=== PATIENT | male | born 1950 | race Caucasian/White ===

== ENCOUNTER 2017-05-16 06:19 | Day surgery (SDC) | payer MEDICARE, OTHER, SELFPAY ==
[2017-05-16 06:45] VITALS: BP 121/66; PULSE 51; RESP 16; TEMP 36.1; O2SAT 98; BMI 30.8
--- NOTE | 2017-05-16 08:51 | PCM.DC.URO ---
Discharge Diet: Light diet - advance as tolerated Discharge Activity: May not drive while taking narcotic pain medications. Call your doctor if your incision/area has: Continuous Slow Oozing, Sudden Increased Bleeding, Increased Pain/ Swelling, Increased Redness, Foul Smelling Discharge, Swelling at the incision site Instructions: Shock Wave Lithotripsy Allergies/Adverse Reactions: Allergies No Known Allergies Allergy (Verified 05/14/17 13:09) Medications to take at Discharge Amlodipine [Norvasc] 5 mg PO QHS 05/14/17 Aspirin E.C. [Ecotrin] 81 mg PO DAILY@0800 05/14/17 Atorvastatin Calcium [Lipitor] 40 mg PO DAILY 05/14/17 Clopidogrel Bisulfate [Plavix] 75 mg PO DAILY 05/14/17 Esomeprazole Magnesium [Nexium 24Hr] 20 mg PO DAILY 05/14/17 Ibuprofen 200 mg PO DAILY 05/14/17 Metoprolol Tartrate [Lopressor (Beta Agapito)] 25 mg PO BID 05/14/17 Hydrocodone/Acetaminophen [[place] 5-325 Tablet] 1 ea PO Q4H PRN PRN #14 tab 05/16/17 The following prescriptions were given: Hydrocodone/Acetaminophen [Dodson 5-325 Tablet] 1 ea PO Q4H PRN PRN #14 tab PRN Reason: Pain Primary Care Physician: Kiley Lira DO [Primary Care Provider] - Please Follow Up With: Bakari Triplett MD - get xray before appt When: Keep appt on Jun 05 at 2:30,
--- NOTE | 2017-05-16 08:55 | DCINST_ITS ---
Discharge Diet: Light diet - advance as tolerated Discharge Activity: May not drive while taking narcotic pain medications. Call your doctor if your incision/area has: Continuous Slow Oozing, Sudden Increased Bleeding, Increased Pain/ Swelling, Increased Redness, Foul Smelling Discharge, Swelling at the incision site Instructions: Shock Wave Lithotripsy Allergies/Adverse Reactions: Allergies No Known Allergies Allergy (Verified 05/14/17 13:09) Medications to take at Discharge Amlodipine [Norvasc] 5 mg PO QHS 05/14/17 Aspirin E.C. [Ecotrin] 81 mg PO DAILY@0800 05/14/17 Atorvastatin Calcium [Lipitor] 40 mg PO DAILY 05/14/17 Clopidogrel Bisulfate [Plavix] 75 mg PO DAILY 05/14/17 Esomeprazole Magnesium [Nexium 24Hr] 20 mg PO DAILY 05/14/17 Ibuprofen 200 mg PO DAILY 05/14/17 Metoprolol Tartrate [Lopressor (Beta Agapito)] 25 mg PO BID 05/14/17 Hydrocodone/Acetaminophen [[place] 5-325 Tablet] 1 ea PO Q4H PRN PRN #14 tab 05/16 The following prescriptions were given: Hydrocodone/Acetaminophen [[place] 5-325 Tablet] 1 ea PO Q4H PRN PRN #14 tab PRN Reason: Pain Primary Care Physician: Kiley Lira DO [Primary Care Provider] - Please Follow Up With: Bakari Triplett MD - get xray before appt When: Keep appt on Jun 05 at 2:30,
[2017-05-16] MEDS: Cefazolin 2 GM in 0.9% Normal Saline 100 ML IV (09:15)
--- NOTE | 2017-05-16 10:00 | PCM.OPRPT ---
Problem List (1) Ureteral calculi Status: Acute Report of Operation Date of Procedure: 05/16/17 Pre-Operative Diagnosis: Left ureteral calculi Post-Operative Diagnosis: Same Surgery/Procedure Performed:: Left extracorporeal shockwave lithotripsy Description of Surgical Findings:: 67-year-old male with a stone in the distal left ureter who presents for shockwave lithotripsy. He was taken back to the operating room after smooth induction of general anesthesia the stone was localized in the F2 focal point of the distal left ureter he then underwent 3000 shockwaves at a rate of 120. At the end of the treatment cycle the stone had broken up really well and no more visible stone was seen in her x-ray. We did not do a cystoscopy no stent was placed patient anesthetic was reversed is taken back to PACU in good condition we can see him back in a few weeks with a KUB. Type of Anesthesia:: General Drains: none - Admit VTE Documentation VTE Present on Admission: No VTE Mechan Device Prophylaxis: SCD's
[2017-05-16 10:04] VITALS: BP 121/66; BP 126/84; PULSE 60; RESP 18; TEMP 36.6; O2SAT 94
[2017-05-16 10:15] VITALS: BP 110/79; BP 121/66; PULSE 57; RESP 18; O2SAT 95
[2017-05-16 10:30] VITALS: BP 112/69; BP 121/66; PULSE 57; RESP 18; O2SAT 95
[2017-05-16 10:44] VITALS: BP 121/66; BP 97/65; PULSE 55; RESP 18; TEMP 36.3; O2SAT 96
[2017-05-16 11:32] VITALS: BP 121/66
== END 2017-05-16 11:32 | disposition home or self-care (01) ==
LOC: SDC 06:20 → AC 06:22
PROVIDERS: Visit Provider Urology
PROC: (CPT 50590; principal; 2017-05-16 08:50)
DX: N20.1 Calculus of ureter (principal); I25.2 Old myocardial infarction; I10 Essential (primary) hypertension; K21.9 Gastro-esophageal reflux disease without esophagitis; I25.10 Atherosclerotic heart disease of native coronary artery without angina pectoris; E78.00 Pure hypercholesterolemia, unspecified; Z95.5 Presence of coronary angioplasty implant and graft; Z79.82 Long term (current) use of aspirin; Z79.02 Long term (current) use of antithrombotics/antiplatelets; Z79.899 Other long term (current) drug therapy
CPT/HCPCS: 00873; 50590; J7120; J2405

== ENCOUNTER → 2017-05-19 08:27 | Outpatient (CLI) | payer MEDICARE, OTHER, SELFPAY | PROVIDERS: Visit Provider Internal Medicine | DX: N20.0 Calculus of kidney (principal) ==

== ENCOUNTER → 2017-06-05 13:22 | Outpatient (CLI) | payer MEDICARE, OTHER, SELFPAY ==
--- NOTE | 2017-06-05 13:23 | RAD_ITS ---
STUDY: X-RAY - ABDOMEN/PELVIS REASON FOR EXAM: Male, 67 years old. History of kidney stone TECHNIQUE: Single AP view of the abdomen / pelvis. COMPARISON: None. FINDINGS: Normal visualized lung bases. There is a moderate amount of colonic fecal material. There is no demonstrated free abdominal air. The visualized liver, spleen and kidneys are grossly normal in size and morphology. Normal soft tissue structures. There are diffuse degenerative changes of the visualized lumbar spine. RAD/Abdomen Single View IMPRESSION: Constipation. Electronically Signed: Manuel Mcdonough MD at 18:36 EST , Service support ,
== END ==
PROVIDERS: Visit Provider Nurse Practitioner Adult Health
DX: N20.0 Calculus of kidney (principal)
CPT/HCPCS: 74018

== ENCOUNTER → 2017-08-04 18:12 | Outpatient (CLI) | payer MEDICARE, OTHER, SELFPAY ==
--- NOTE | 2017-08-04 | CYSPIN_PTH ---
PATIENT: KAYKAY ARAUJO LOC: [facility] U#:[id number] AGE/SX: 74/M ROOM: RE08/04/[address]: CHANTE Colindres : 1950 BED: DIS: SPEC #: [id number] RECD: 08/04/17 14:00 STATUS: SALVADOR TRACIE #: [id number] TRAVIS: 08/04/17 00:[address]: Kristen Jean-Baptiste NP DEPT: CYTOLOGY RECD BY: Leon Ponce ENTERED: 08/05/17 07:53 SP TYPE: CYSPIN FL OTHR DR: Dr. Kiley Lira, DO Tissues: Urine Procedures: Pap Stain (control) Special Stain Group II Cytospin Fluid HEADER OPERATION: Not noted PRE-OP DIAGNOSIS: Hematuria TISSUE SUBMITTED: Urine for cytology DIAGNOSIS CYTOLOGY Urine for cytology (cytospin): Negative for malignant cells. See cytology study and comment. SJ:lizzie 08/06/17 COMMENT Clinical correlation and appropriate follow up are necessary. CYTOLOGY STUDY Slides are reviewed. The specimen consists of numerous sperms, crystals, benign squamous cells, benign urothelial cells, inflammatory cells and a few red blood cells. CYTOLOGY GROSS Received is 60 ml of clear yellow fluid labeled with the patient's name and and designated per the requisition as urine. Submitted for cytology preparation. 08/05/17 TC:5 CPT: 31819
[2017-08-04 18:24] LABS: Cytology, Body Fluid / CSF SEE PATHOLOGY REPORT
== END ==
PROVIDERS: Visit Provider Nurse Practitioner Adult Health
DX: R31.9 Hematuria, unspecified (principal)
CPT/HCPCS: 87086; 88108; 88313

== ENCOUNTER → 2017-08-21 17:18 | Outpatient (CLI) | payer MEDICARE, OTHER, SELFPAY ==
--- NOTE | 2017-08-21 | CYSPIN_PTH ---
PATIENT: KAYKAY ARAUJO LOC: [facility] U#:[id number] AGE/SX: 74/M ROOM: RE08/21/[address]: Dr. Bakari Triplett MD : 1950 BED: DIS: SPEC #: [id number] RECD: 08/22/17 07:50 STATUS: SALVADOR TRACIE #: [id number] TRAVIS: 08/21/17 00:[address]: Bakari Triplett DEPT: CYTOLOGY RECD BY: Michael Guzman ENTERED: 08/22/17 07:51 SP TYPE: CYSPIN FL OTHR DR: Dr. Kiley Lira, DO Tissues: Urine Procedures: Pap Stain (control) Special Stain Group II Cytospin Fluid HEADER OPERATION: Not noted PRE-OP DIAGNOSIS: Hematuria TISSUE SUBMITTED: Urine for cytology DIAGNOSIS CYTOLOGY Urine for cytology (cytospin): Negative for malignant cells. SJ:lizzie 08/25/17 COMMENT Clinical correlation and appropriate follow up are necessary. Please make reference to previous cytology ([id number]) urine for cytology with diagnosis of negative for malignant cells. CYTOLOGY STUDY Slides are reviewed. The specimen is paucicellular and consists of rare benign urothelial cells and amorphous material. CYTOLOGY GROSS Received is 20 ml of yellow, cloudy fluid labeled with the patient's name and and designated per the requisition as urine. Submitted for cytology preparation. 08/22/17 TC:5 CPT: 59078
[2017-08-21 17:20] LABS: Cytology, Body Fluid / CSF SEE PATHOLOGY REPORT
== END ==
PROVIDERS: Visit Provider Urology
DX: R31.9 Hematuria, unspecified (principal)
CPT/HCPCS: 88108; 88313

== ENCOUNTER → 2020-05-19 10:17 | Outpatient (CLI) | payer MEDICARE, OTHER, SELFPAY ==
[2020-05-19 07:54] VITALS: BMI 33.2
[2020-05-19 10:52] LABS: Absolute Lymphocyte Count 1.52 X10^3/uL (0.83-4.51); Absolute Neutrophil Count 3.4 X10^3/uL (2.0-7.7); Basophil# 0.03 X10^3/uL; Basophil% 0.5 % (0-1); Eosinophil# 0.07 X10^3/uL; Eosinophils% 1.3 % (0-5); Hematocrit 55.5 % (40-54); Hemoglobin 18.5 g/dL (13.0-16.5); Lymphocyte # 1.52 X10^3/ul (4.0); Lymphocyte % 27.5 % (19-41); Mean Corp Hgb Conc 33.3 g/dL (32-36); Mean Corpuscular Volume 98.9 fL (80-94); Mean Platelet Vol. 9.6 fl (6.2-12.0); Monocyte# 0.52 X10^3/uL; Monocyte% 9.4 % (0-10); NRBC Flagged by Analyzer 0 % (0-5); Neutrophil # 3.38 X10^3/uL (2.7-7.7); Neutrophil % 61.1 % (47-70); Platelet Count 128 K/mm3 (150-450); RBC Distribution Width CV 13.2 % (11.6-14.6); RBC Distribution Width SD 47.8 fl (35.1-43.9); Red Blood Count 5.61 M/mm3 (4.6-6.2); White Blood Count 5.5 K/mm3 (4.4-11.0)
[2020-05-19 11:25] LABS: Anion Gap 1 (5-15); BUN 16 mg/dL (7-18); BUN/Creat Ratio 16.6 RATIO (10-20); Calcium,Total 12.6 mg/dL (8.5-10.1); Chloride 109 mmol/L (98-107); Creatinine, Serum 0.96 mg/dL (0.70-1.30); EST Glomerular Filtration Rate 82 mL/min (>60); Est Glom Filt Rate - Afr Amer 100 mL/min (>60); Glucose 98 mg/dL (74-106); Potassium 4.6 mmol/L (3.5-5.1); Sodium Level 141 mmol/L (136-145)
== END ==
PROVIDERS: PCP Student in an Organized Health Care Education/Training Program; Referring Provider Internal Medicine Cardiovascular Disease; Visit Provider Internal Medicine Cardiovascular Disease
DX: Z01.810 Encounter for preprocedural cardiovascular examination (principal); Z95.5 Presence of coronary angioplasty implant and graft
CPT/HCPCS: 36415; 80048; 85025

== ENCOUNTER → 2020-06-12 06:01 | Outpatient (CLI) | payer MEDICARE, OTHER, SELFPAY ==
[2020-05-19 07:54] VITALS: BMI 33.2
[2020-06-05 08:53] VITALS: BMI 32.9
--- NOTE | 2020-06-12 06:07 | ECHOCS_ITS ---
Reason For Study: CAD/ASHD Procedure This was a 2D Doppler, Color Flow transthoracic echocardiogram. The study was technically difficult. Contrast injection was performed. Exam performed in department. Left Ventricle Normal LV size. Left ventricular systolic function is normal. The estimated ejection fraction is 60 %. Stage 1 diastolic dysfunction. Right Ventricle Normal RV size. Normal systolic function. Atria Normal left atrium. Normal right atrium. Mitral Valve Normal mitral valve. Tricuspid Valve Normal tricuspid valve. Aortic Valve Trisinus/trileaflet aortic valve. Pulmonic Valve Normal pulmonic valve. Great Vessels Mildly dilated aortic root. The pulmonary artery is normal size. Normal inferior vena cava. Pericardium/Pleural No pericardial effusion. Medication 22 gauge I.V. with prn adaptor inserted into right arm. Diluted definity 4ml given slow IV push to enhance endocardial definition. MMode/2D Measurements & Calculations LVIDd: 4.4 cm FS: 21.2 % Ao root diam: 4.0 cm LVIDs: 3.5 cm LAV(MOD-bp): 50.9 ml LA A4 area: 16.9 cm2 LAV(MOD-bp) Indexed: 22.4 ml/m2 LAV(MOD-sp2): 54.3 ml LAV(MOD-sp4): 43.7 ml Time Measurements MV dec time: 0.16 sec Doppler Measurements & Calculations MV E max mehul: 41.5 cm/sec Lat Peak E' Mehul: 8.4 cm/sec Med Peak E' Mehul: 7.7 cm/sec MV A max mehul: 89.5 cm/sec E/E' lat: 4.9 E/E' med: 5.4 MV E/A: 0.46 MV V2 max: 110.0 cm/sec MV P1/2t max mehul: 66.0 cm/sec Ao V2 max: 117.5 cm/sec MV max P.8 mmHg MV P1/2t: 62.0 msec Ao max P.5 mmHg MV V2 mean: 56.7 cm/sec MV dec slope: 311.6 cm/sec2 MV mean P.6 mmHg MV V2 VTI: 16.9 cm MVA(P1/2t): 3.5 cm2 LV V1 max: 104.4 cm/sec PA V2 max: 115.6 cm/sec LV V1 max P.4 mmHg Interpretation Summary Normal LV size. Left ventricular systolic function is normal. The estimated ejection fraction is 60 %. Stage 1 diastolic dysfunction. Mildly dilated aortic root. Contrast injection was performed. Ordering Physician: Esvin Navarro Referring Physician: CLARIBEL STARK Performed By: Jacob Hu RCS
--- NOTE | 2020-06-12 16:44 | STRESSREP ---
Stress Test Report Pharmacologic myocardial perfusion stress test. 70-year-old man with a history of hypertension, hyperlipidemia, coronary disease status post drug-eluting stent to the left anterior descending artery and to the mid circumflex artery. Stress protocol: Resting EKG demonstrates normal sinus rhythm with a rate of 87 bpm poor R wave progression is noted resting blood pressure is 142/92 mmHg. 0.4 mg of regadenoson was infused per usual protocol followed by rapid intravenous saline flush injection continuous EKG monitoring was performed. The maximum heart rate attained was 110 bpm which was 72% of max impacted heart rate the maximum workload was 1 metabolic equivalent. At rest there were no ST or T wave changes noted to suggest abnormal flow reserve at peak infusion nonspecific ST-T wave changes were noted with no meet the criteria for ischemia. Myocardial perfusion protocol. 14.7 mCi of technetium 99m sestamibi was injected at rest. 0.4 mg of regadenoson was infused per usual protocol. At peak infusion 44.6 mCi of technetium 99m sestamibi was injected stress images were obtained stress and rest images were reconstructed and compared in the short axis vertical long horizontal long axis. Gated images were also obtained Perfusion SPECT analysis: Review of the stress images demonstrate normal cardiac silhouette size. There is a large defect noted involving the apex as well as the distal anteroseptal wall. The rest of the jimenez appear to be well perfused. This defect is present on the stress and resting images to a similar extent suggesting a previous distal anteroseptal and apical infarct. No ischemia is noted. Gated SPECT analysis: The gated ejection fraction is noted to be 55%. 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 No ischemia noted
== END ==
PROVIDERS: PCP Student in an Organized Health Care Education/Training Program; Referring Provider Internal Medicine Cardiovascular Disease; Visit Provider Internal Medicine Cardiovascular Disease
DX: I25.10 Atherosclerotic heart disease of native coronary artery without angina pectoris (principal); Z95.5 Presence of coronary angioplasty implant and graft
CPT/HCPCS: 78452; 93017; 93306; A9500; Q9957; A4216; C8929; J2785

== ENCOUNTER → 2020-06-16 08:37 | Outpatient (CLI) | payer MEDICARE, OTHER, SELFPAY ==
[2020-06-05 08:53] VITALS: BMI 32.9
--- NOTE | 2020-06-16 08:39 | US_ITS ---
STUDY: ABDOMINAL ULTRASOUND REASON FOR EXAM: Male, 70 years old. POLYCYTHEMIA R/O KIDNEY MASSES, SPLENOMEGALY -- ATTN: KIDNEYS AND SPLEEN TECHNIQUE: Transabdominal ultrasound was performed with real-time and static clayton scale imaging. TECHNICAL QUALITY: Adequate. COMPARISON: None. FINDINGS: Liver: The liver is mildly enlarged and measures 19 cm. There is increased echogenicity consistent with fatty infiltration. The bile ducts are within normal limits. There is hepatic color flow. The direction of portal flow is hepatopetal. There is no demonstrated mass lesion. Portal vein measurement: Gallbladder: The patient is status post cholecystectomy. Common Bile Duct (C.B.D.): The common bile duct measures 5.4 mm. Pancreas: Normal size of the head, body and tail of the pancreas. There is normal echogenicity of the pancreas. There is no demonstrated pancreatic mass or cyst. Spleen: There is splenomegaly. The spleen measures 13.7 cm x 8.6 cm x 7.6 cm. Right Kidney: Normal size of the right kidney. The right kidney measures 14 cm x 6.6 cm x 6.6 cm. Normal renal cortex. The right cortex measures 2.3 cm. 3 renal cysts are seen. The largest measures 5.2 cm x 5.5 cm x 5.3 cm. There is no right hydronephrosis. Left Kidney: Normal size of the left kidney. The left kidney measures 13.6 cm x 5.8 cm x 6.9 cm. Normal renal cortex. The left cortex measures 1.7 cm. 4 renal cysts are seen. The largest measures 3.2 cm x 3 cm x 2.8 cm. There is no left hydronephrosis. Aorta: Unremarkable I.V.C.: The IVC is patent. There is no ascites. US/Abdomen Complete IMPRESSION: Mild hepatomegaly with fatty infiltration of the liver. Status post cholecystectomy. Bilateral renal cysts. Splenomegaly. Electronically Signed: Terry Hayward MD at 10:30 EST , Service support ,
== END ==
PROVIDERS: PCP Student in an Organized Health Care Education/Training Program; Referring Provider Internal Medicine Hematology & Oncology; Visit Provider Internal Medicine Hematology & Oncology
DX: D75.1 Secondary polycythemia (principal)
CPT/HCPCS: 76700

== ENCOUNTER → 2020-06-22 10:22 | Outpatient (CLI) | payer MEDICARE, OTHER, SELFPAY ==
[2020-06-05 08:53] VITALS: BMI 32.9
[2020-06-20 10:46] VITALS: BMI 33.2
--- NOTE | 2020-06-22 10:24 | ART_ITS ---
Reason For Study: Claudication Procedure A bilateral lower extremity continuous wave Doppler with analog waveform analysis and ankle brachial indexes. Left Segmental Pressures Left brachial= 140mmHg. Left posterior tibial artery = 175mmHg. Left dorsalis pedis artery = 168mmHg. Left digit = 104 mmHg. The left dorsalis pedis waveforms are triphasic. The left posterior tibial artery waveforms are triphasic. Right Segmental Pressures Right brachial= 140mmHg. Right posterior tibial artery = 181mmHg. Right dorsalis pedis artery = 171mmHg. Right digit = 124 mmHg. The right dorsalis pedis waveforms are triphasic. The right posterior tibial artery waveforms are triphasic. Indices The right ankle brachial index by the dorsalis pedis is 1.22. The right ankle brachial index by the posterior tibial artery is 1.29. The right digital-brachial index is 0.89. The left ankle brachial index by the dorsalis pedis is 1.20. The left ankle brachial index by the posterior tibial artery is 1.25. The left digital-brachial index is 0.74. Interpretation Summary Bilateral lower extremity with no evidence occlussive disease at rest with triphasic flow bilateral and LALO 1.29 and 1.25. Ordering Physician: Esvin Navarro Referring Physician: Ellie Ramos Performed By: Bertha Snider RVNu
== END ==
PROVIDERS: PCP Student in an Organized Health Care Education/Training Program; Referring Provider Internal Medicine Cardiovascular Disease; Visit Provider Internal Medicine Cardiovascular Disease
DX: I73.9 Peripheral vascular disease, unspecified (principal); D75.1 Secondary polycythemia; D69.6 Thrombocytopenia, unspecified; E21.0 Primary hyperparathyroidism; I25.10 Atherosclerotic heart disease of native coronary artery without angina pectoris; I25.2 Old myocardial infarction; Z95.5 Presence of coronary angioplasty implant and graft; I10 Essential (primary) hypertension; E78.1 Pure hyperglyceridemia; E78.5 Hyperlipidemia, unspecified
CPT/HCPCS: 93922

== ENCOUNTER → 2021-02-26 09:46 | Outpatient (CLI) | payer MEDICARE, OTHER, SELFPAY ==
[2020-11-28 09:31] VITALS: BMI 33.2
--- NOTE | 2021-02-26 09:57 | US_ITS ---
STUDY: THYROID ULTRASOUND REASON FOR EXAM: Male, 70 years old. Right lower parathyroid adenoma TECHNIQUE: Ultrasound evaluation of the thyroid was performed with real-time and static clayton-scale imaging. COMPARISON: None. FINDINGS: RIGHT LOBE: The right lobe of the thyroid gland measures 4.6 x 2 cm x 1.6 cm. There is a homogeneous echotexture. Tiny subcentimeters cysts are seen scattered throughout the right lobe. There is evidence of a 1.4 cm x 1.2 cm x 1.4 cm hypoechoic solid nodule in the right parathyroid gland. LEFT LOBE: The left lobe of the thyroid gland measures 4.8 cm x 2.1 cm x 2.1 cm. There is a homogeneous echotexture. Multiple small hypoechoic solid nodules are seen. The largest measures 4 mm x 4 mm x 3 mm. ISTHMUS: The isthmus measures 5 mm. The regional lymph nodes are normal. US/Thyroid IMPRESSION: Findings suggestive of a 1.4 cm x 1.2 cm x 1.4 cm adenoma in the right parathyroid gland. There are 2 subcentimeter hypoechoic solid nodules in the left lobe of the thyroid. The larger measures 4 mm x 4 mm x 3 mm Electronically Signed: Terry Hayward MD at 12:59 EST , Service support ,
== END ==
PROVIDERS: PCP Student in an Organized Health Care Education/Training Program; Referring Provider Internal Medicine Endocrinology, Diabetes & Metabolism; Visit Provider Internal Medicine Endocrinology, Diabetes & Metabolism
DX: E21.0 Primary hyperparathyroidism (principal)
CPT/HCPCS: 76536

== ENCOUNTER 2021-07-03 08:38 | Outpatient (CLI) | payer MEDICARE, OTHER, SELFPAY ==
--- NOTE | 2021-07-03 08:49 | BD_ITS ---
STUDY: DUAL ENERGY X-RAY ABSORPTIOMETRY / DXA REASON FOR EXAM: Male, 71 years old. Hyperparathyroidism. TECHNIQUE: Bone Mineral Density (BMD) measurements of lumbar spine and bilateral hips were obtained. COMPARISON: None. FINDINGS: Lumbar Spine (L1-L2): g/cm2 (0.981) / T-score (-0.7) / Z-score (0.2) Findings are suggestive of normal bone density with a fracture risk. Left Femur Total: g/cm2 (0.809) / T-score (-1.5) / Z-score (-0.8) Left Femoral Neck: g/cm2 (0.648) / T-score (sinus 2.1) / Z-score (-0.9) Right Femur Total: g/cm2 (0.869) / T-score (-1.1) / Z-score (0.4) Right Femoral Neck: g/cm2 (0.657) / T-score (-2.0) / Z-score (-0.8) BD/Dexa Bone Density Study IMPRESSION: The patient is considered osteopenic as outlined below according to World Alejandro Organization (WHO) criteria with a moderate fracture risk. Reference Information: The T-score is the number of standard deviations above or below the standard which is normal for young adults at their peak bone mineral density. The World Health Organization (WHO) interprets the T-scores as follows: Above -1 Normal bone density Between -1 and -2.5 Osteopenia Equal to / or below -2.5 Osteoporosis As a practical clinical guideline, osteopenia may be graded as follows: Mild -1 through -1.5 Moderate -1.6 through -2.0 Severe -2.1 through -2.4 The Z-score is the number of standard deviations above or below age-matched controls. A Z-score of less than -1.5 would be considered abnormal. References: 1. NIH Osteoporosis and Related Bone Diseases www osteo.org 2. International Society for Clinical Densitometry www iscd.org 3. National Osteoporosis Foundation www nof.org Electronically Signed: Leon Kirby DO at 17:09 EDT Reading Location ID and State: [address] [place] [address] Tel [phone], Service support ,
== END 2021-07-03 23:59 | disposition home or self-care (01) ==
PROVIDERS: PCP Student in an Organized Health Care Education/Training Program; Visit Provider Surgery
DX: E21.0 Primary hyperparathyroidism (principal); E83.52 Hypercalcemia
CPT/HCPCS: 77080

== ENCOUNTER 2021-07-20 08:30 | Outpatient (CLI) | payer MEDICARE, OTHER, SELFPAY ==
[2021-07-20 09:28] LABS: Calcium,Total 12.4 mg/dL (8.5-10.1)
[2021-07-20 14:16] LABS: PTHIN 324.2 pg/mL (18.4-80.1)
== END 2021-07-20 23:59 | disposition home or self-care (01) ==
LOC: LAB 08:32
PROVIDERS: PCP Student in an Organized Health Care Education/Training Program; Referring Provider Surgery; Visit Provider Surgery
DX: E21.3 Hyperparathyroidism, unspecified (principal)
CPT/HCPCS: 36415; 82310; 83970

== ENCOUNTER 2021-07-27 09:14 | Outpatient (CLI) | payer MEDICARE, OTHER, SELFPAY | END 2021-07-27 23:59 | disposition home or self-care (01) | LOC: LAB 09:15 | PROVIDERS: PCP Student in an Organized Health Care Education/Training Program; Referring Provider Surgery; Visit Provider Surgery | DX: E21.3 Hyperparathyroidism, unspecified (principal); E83.52 Hypercalcemia | CPT/HCPCS: 36415; 82306; 82310 ==

== ENCOUNTER → 2021-07-31 | Outpatient (CLI) | payer MEDICARE, OTHER, SELFPAY ==
--- NOTE | 2021-07-31 09:35 | ASPS_PTH ---
PATIENT: KAYKAY ARAUJO LOC: [facility] U#:[id number] AGE/SX: 71/M ROOM: RE07/31/[address]: Dr. Carlos Reed MD : 1950 BED: DIS: 07/31/2021 SPEC #: [id number] RECD: 07/31/21 16:01 STATUS: SALVADOR TRACIE #: [id number] TRAVIS: 07/31/21 09:[address]: Carlos Reed DEPT: CYTOLOGY RECD BY: Mary Craven ENTERED: 08/01/21 06:05 SP TYPE: ASPIRATION OTHR DR: Dr. Ellie Ramos MD Tissues: Parathyroid Procedures: Special Stain Group II Cytology Other HEADER OPERATION: Fine needle aspiration parathyroid PRE-OP DIAGNOSIS: Right neck lesion parathyroid TISSUE SUBMITTED: Parathyroid aspirate x4 slides DIAGNOSIS CYTOLOGY Fine needle aspiration, right neck/parathyroid (smears): Negative for malignant cells. See comment. AM:lizzie 08/01/2021 COMMENT The specimen primarily contains blood. Cells of parathyroid, thyroid or epithelial neoplasm are not identified. Clinical correlation is suggested. CYTOLOGY STUDY Slides are reviewed. CYTOLOGY GROSS Received are four smears labeled with the patient's name and designated per the requisition as parathyroid. Submitted for staining. / lizzie 07/31/2021 TC:5 [facility]: [id number]
[2021-07-31 11:02] LABS: PTHIN > 10000.0 pg/mL (18.4-80.1)
== END | disposition home or self-care (01) ==
PROVIDERS: PCP Student in an Organized Health Care Education/Training Program; Visit Provider Surgery
DX: R22.1 Localized swelling, mass and lump, neck (principal)
CPT/HCPCS: 83970; 88161; 88313

== ENCOUNTER 2021-09-06 17:20 | Observation (INO) | payer MEDICARE, OTHER, SELFPAY ==
[2021-09-05 09:24] LABS: Hematocrit 54.1 % (40-54); Mean Corp Hgb Conc 33.3 g/dL (32-36); Mean Corpuscular Hgb 33.4 pg (27.0-32.0); Mean Corpuscular Volume 100.4 fL (80-94); Mean Platelet Vol. 10.1 fl (6.2-12.0); Platelet Count 114 K/mm3 (150-450); RBC Distribution Width CV 13.1 % (11.6-14.6); RBC Distribution Width SD 48.9 fl (35.1-43.9); Red Blood Count 5.39 M/mm3 (4.6-6.2); White Blood Count 5.9 K/mm3 (4.4-11.0)
[2021-09-05 09:37] LABS: Scan Indicated on CBC? Y/N YES- FLAGS NOTED
[2021-09-05 09:56] LABS: PTHIN 353.2 pg/mL (18.4-80.1); Vitamin D,25 Hydroxy 20.8 ng/mL
[2021-09-05 09:56] LABS: Anion Gap 2 (5-15); BUN 15 mg/dL (7-18); Calcium,Total 11.2 mg/dL (8.5-10.1); Chloride 110 mmol/L (98-107); Creatinine, Serum 0.88 mg/dL (0.70-1.30); EST Glomerular Filtration Rate 91 mL/min (>60); Est Glom Filt Rate - Afr Amer 110 mL/min (>60); Glucose 96 mg/dL (74-106); Potassium 4.2 mmol/L (3.5-5.1); Sodium Level 141 mmol/L (136-145)
[2021-09-06] VITALS (11 sets, daily range): BP systolic 126–141; BP diastolic 65–84; PULSE 64–85; RESP 16–20; TEMP 36.1–36.9; O2SAT 62–98; BMI 33.6; BMI 33.7
--- NOTE | 2021-09-06 | PARA_PTH ---
PATIENT: KAYKAY ARAUJO LOC: [facility] U#:[id number] AGE/SX: 71/M ROOM: [facility] RE09/06/[address]: Dr. Carlos Reed MD : 1950 BED: 1 DIS: 09/07/2021 SPEC #: [id number] RECD: 09/06/21 14:33 STATUS: SALVADOR REJuliocesar #: [id number] TRAVIS: 09/06/21 00:[address]: Carlos Reed DEPT: SURGICAL PATHOLOGY RECD BY: Fariha Alexander ENTERED: 09/06/21 15:09 SP TYPE: PARATHY OTHR DR: Dr. Ellie Ramos MD Tissues: A - Parathyroid B - Parathyroid Procedures: Frozen Section (charge) Surgery Specimen Level IV HEADER OPERATION: Parathyroidectomy with intraoperative nerve and PTH monitoring PRE-OP DIAGNOSIS: Hyperparathyroidism TISSUE SUBMITTED: A ? Parathyroid tissue, FS, B ? Superior right parathyroid tissue, FS FROZEN SECTION DIAGNOSIS A. Perithyroidal tissue, biopsy: Fibrofatty and lymphoid tissue. AM:lizzie 09/06/2021 Case has been reviewed in consultation with Dr. Frances who concurs with the above diagnosis. IDC:ARTURO B. Parathyroid, right superior, biopsy: Parathyroid tissue (1.7 gm). :lizzie 09/06/2021 MICROSCOPIC DIAGNOSIS A. Perithyroidal tissue, biopsy: A piece of fibrofatty tissue with benign lymphoid tissue. Parathyroid tissue is not identified. B. Parathyroid right superior, excision: Hyperplastic parathyroid tissue (1.7 gm). See comment. :lizzie 09/07/2021 COMMENT B. An unremarkable parathyroid tissue is also noted at the periphery the specimen. The findings may represent parathyroid adenoma. A minute fragment of cartilage is also noted in the capsular area. Clinical correlation and appropriate follow up are necessary. Case has been reviewed in consultation with Dr. Nichole who concurs with the above diagnosis. IDC:TELMA MICROSCOPIC DESCRIPTION Slides are reviewed. GROSS DESCRIPTION A - Received fresh for frozen section diagnosis labeled with the patient's name is a specimen designated parathyroid tissue. The specimen consists of a piece of villareal-pink soft tissue measuring 0.5 x 0.5 x 0.1 cm. The entire specimen is submitted for frozen section diagnosis in one cassette. / AM:lizzie 09/06/2021 B - Received fresh for frozen section diagnosis labeled with the patient's name is a specimen designated parathyroid right superior. The specimen consists of a pink-clayton nodule weighing 1.7 gm and measuring 2 x 2 x 1 cm. Sections reveal villareal solid cut surfaces. A section is submitted for frozen section diagnosis. The entire specimen is submitted in two cassettes as follows: 1 ? frozen section, 2 ? rest of the specimen. / SJ:lizzie 09/06/2021 TC:1 CPT: 59902 x2, 76765 x2
[2021-09-06] MEDS: Lactated Ringers 1,000 ML 15 ML IV ×2 (09:40→16:46)
[2021-09-06 09:56] LABS: PTHIN 318.8 pg/mL (18.4-80.1)
--- NOTE | 2021-09-06 09:58 | HP.PCM_ITS ---
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 Is patient in pain?: No Allergies No Known Allergies Allergy (Verified 08/13/21 07:48) Medications aspirin 81 mg PO DAILY@0800 05/14/17 [History Confirmed 08/13/21] clopidogrel 75 mg PO DAILY 05/14/17 [History Confirmed 08/13/21] esomeprazole magnesium 20 mg PO DAILY 05/14/17 [History Confirmed 08/13/21] losartan 25 mg tablet 25 mg PO DAILY 05/18/20 [History Confirmed 08/13/21] sertraline 50 mg tablet 50 mg PO DAILY 05/18/20 [History Confirmed 08/13/21] acetaminophen 500 mg tablet 1,000 mg PO BID tab 05/19/20 [History Confirmed 08/13/21] gabapentin 100 mg capsule 100 mg PO Q6H cap 05/19/20 [History Confirmed 08/13/21] multivitamin 1 tab PO DAILY 05/19/20 [History Confirmed 08/13/21] omega-3 fatty acids-fish oil 1 ea PO DAILY 06/05/20 [History Confirmed 08/13/21] metoprolol succinate 25 mg tablet,extended release 24 hr 25 mg PO DAILY #30 tab 11/20/20 [Rx Confirmed 08/13/21] rosuvastatin 40 mg tablet 40 mg PO DAILY 11/20/20 [History Confirmed 08/13/21] cholecalciferol (vitamin D3) 25 mcg (1,000 unit) capsule 25 mcg PO DAILY #30 cap 08/13/21 [Rx Confirmed 08/13/21] PFSH Medical History Atherosclerotic heart disease of [place] coronary artery without angina pectoris Essential (primary) hypertension GERD (gastroesophageal reflux disease) History of non-ST elevation myocardial infarction (NSTEMI) (03/02/17) Hypercalcemia Hyperlipidemia Hyperparathyroidism Hypertriglyceridemia Pancreatitis Peripheral vascular occlusive disease Polycystic kidney disease Ureteral calculi Surgical History History of cholecystectomy History of coronary artery stent placement (03/21/17) History of herniorrhaphy History of lithotripsy History of parathyroidectomy History of tonsillectomy Family History Father CAD (coronary artery disease) Mother Cancer Social History Smoking Status: Never smoker HPI HPI HPI: KAYKAY ARAUJO, is a 71 M who presents to the office today for hyperparathyroidism. They are referred from Dr. Darrell Almeida. His initial visit was March 02, 2021. He follows up most immediately from a 07/31/2020 visit where we undertook FNA of the suspicious right neck lesion concerning for parathyroid adenoma. Immediately after the procedure, the patient's PTH assay returned greater than 10,000?consistent with a parathyroid adenoma. He and his present at today's visit and they deny any interval changes. Below is recapitulated from patient's initial Mr. Araujo has a history of parathyroidectomy approximately 15 [address] performed [address] Dailey at [facility]. By his recollection, only 1 gla nd was removed at that time. Indication for the procedure was an incidentally?noted hypercalcemia with routine lab work. Subsequently?he estimates the last 1 to 2 years?he was told he again had hypercalcemia. Work-up was conducted of this hypercalcemia and is concluded to have hyperparathyroidism. Patient has no history of DEXA imaging, but he has no history of pathologic fractures. Patient has a history of kidney stones with one requiring lithotripsy approximately 3 years ago. Patient has a history of frequent dental caries and chipped teeth. Patient has no history of brittle fingernails. Patient has a history of GERD, but this is well controlled with Prilosec. Patient has a history of hypertension but this is also been under good control. Additional symptoms include: Some fatigue and mood lability, but patient's states this has been true for years. We covered that hyperparathyroidism can develop insidiously and over many years, but she still appears to remain somewha t skeptical. Patient's family history for any endocrinopathies is unknown. Patient's current labs are calcium: 12.5 mg/dL 06/05/2020 [(Range of: 12 .5 to 12.6)], Vitamin D: [Value] ng/mL [date], Ionized calcium: [Value]mg/dL [date], PTH: [Value]pg/mL [date] [(Range of: over time period)], Phosphorus: [Value] [date] Current medications include: No calcium or vitamin D supplementation or Sensipar. Patient is on Plavix for history of coronary stents Imaging has been done ultrasound 02/26/2021 and showed a 1.4 x 1.2 x 1.4 cm hypoechoic lesion consistent with a right?sided parathyroid adenoma. Patient has not had DEXA imaging. Patient was previously under work-up for a diagnosis of polycythemia by hematology but was unable to keep a nephrology appointment due to pandemic constraints. Renal imaging had been obtained showing evidence of renal cysts. ROS General General: Yes fatigue; No weight change, appetite, colon cancer, breast cancer or weakness HEENT HEENT: No difficulty swallowing, eye injury, eye surgery, swollen glands or hoarseness Endo Endocrine: No thyroid disease, diabetes mellitus, thyroid cancer, Hair loss, heat intolerance or cold intolerance Musc Musculoskeletal: Yes back problems and arthritis; No rheumatoid arthritis, gout or joint pain Cardio Cardiovascular: Yes high blood pressure, heart attack and heart stent; No murmur, pacemaker, heart disease, atrial fibrillation, palpitations, shortness of breat with exertion or chest pain Psych Psychiatric: Yes depression and anxiety; No hearing voices Resp Respiratory: No shortness of breath, No sleep apnea, No cough, No COPD, No asthma, No emphysema and No wheezing Gastro Gastrointestinal: No abdominal pain, No nausea or vomiting, No diarrhea, No constipation, No blood in stool, No acid reflux, No hemorrhoids, No ulcers, No gallbladder problem and No black,tarry stools Alexis Hematologic: No blood thinners, No blood disorders, No bleeding, No anemia and No blood clots Neuro Neurologic: No weakness Exam Const General: cooperative and healthy appearing Orientation: alert, awake and oriented x3 Neck Neck: normal visual inspection Neck mass: No Lymphatic: no lymphedema noted Assessment and Plan Assessment and Plan (1) Hyperparathyroidism: Status: Chronic Comment: This is a 70-year-old gentleman with a complex cardiac history who presents with recurrent (versus persistent) hyperparathyroidism. FNA for suspicious right neck lesion was performed with PTH assay on 07/31/2021. This appears to have confirmed localization of the parathyroid adenoma. At today's visit, we discussed an operative approach to include intraoperative PTH and nerve monitoring by starting on the right side of the patient's neck. Should his PTH level dropped appropriately, procedure would be completed. However, his PTH remained elevated then we would be compelled to begin dissection on the left side. Given patient's concurrent antiplatelet therapy, he would need to have this held at least 7 days prior to an operation. Additionally, briefly discussed patient's recovery from his prior surgery and he denies any voice changes after this surgery. Lastly, if we are able to achieve a a.m. start and not require left-sided dissection, this could be conducted as an outpatient procedure. In the interim, we will work to replete patient's vitamin D which was shown to be a little low on labs from earlier this month. I will begin with supplementation using 1000 international units daily, but also enlist the help of Dr. Almeida of endocrinology for her input. Plan - Dr. Carlos Reed MD: ? Tentatively plan for parathyroidectomy with intraoperative nerve and PTH monitoring September 06, 2021. Depending on the course of the operation, may be considered outpatient disposition ? Work to replete vitamin D in the interim with 1000 international units daily (2) Vitamin D insufficiency: Status: Acute Comment: Patient's most recent vitamin D level was 18. This indicates vitamin D insufficiency. We will begin supplementation with 1000 international units daily. Medications: New: cholecalciferol (vitamin D3) 25 mcg PO DAILY 30 caps 1RF Plan - Dr. Carlos Reed MD: supplementation with 1000 international units daily I have re-examined the patient. There are no clinical changes since date of exam. I telephoned patient and his yesterday and confirmed that Plavix has been held for 1 week and that patient has been supplementing vitamin D with 5000 international units daily (an update from a previous encounter as a recommendation from Dr. Almeida of endocrinology). They deny any other health changes today and confirmed that they are ready to proceed with surgery and are without further questions. Given this confirmation, we will proceed to the OR today for parathyroidectomy with intraoperative PTH and intraoperative nerve monitoring.
[2021-09-06] MEDS: Bupivacaine Mpf 0.5% 30 ML VIAL (12:00)
[2021-09-06 15:44] LABS: PTHIN 26.6 pg/mL (18.4-80.1)
[2021-09-06 15:45] LABS: PTHIN 22.6 pg/mL (18.4-80.1)
--- NOTE | 2021-09-06 16:19 | OP.PCM_ITS ---
Report of Operation Date of Procedure: 09/06/21 Pre-Operative Diagnosis: Recurrent versus persistent hyperparathyroidism with s uspicious lesion localized to the right superior position. Post-Operative Diagnosis: Same Surgery/Procedure Performed:: Reoperative parathyroidectomy?right superior parathyroid Description of Surgical Findings:: ? Dense inflammatory reaction between patient's strap muscles and the right thyroid lobe capsule ? Hypercellular, mosaic?pigmented right superior parathyroid adenoma?that weighed 1.7 g Surgeon: Carlos Reed vehicle calibration engineer: Deann Uribe vehicle calibration engineer: Laura Hernandez Type of Anesthesia: General/Supplemental Anesthesiologist: Moisés Payan Specimen's removed: Right superior parathyroid Drains: None Estimated Blood Loss (mL): 50 Description of Procedure: After appropriate identification in the preoperative holding area the patient was brought to the operating room where he was positioned supine on the operating room table. There he was induced with general endotracheal anesthetic. Of note, a preoperative PTH had been obtained and was reported as 318. Patient was then intubated using a Nims tube and glidescope to ensure coaptation between the vocal cords and the Nims tube electrodes. A resistance check confirmed appropriate function of the tube after the electrodes were properly connected to the monitoring box. Patient was then positioned and all interfering hair of the surgical site was removed with clippers. I used a bedside ultrasound to quickly examine the patient's neck and ensure proper latitude of our surgical incision?marking out patient's prior surgical scar as I did so. He was prepped and draped in the usual sterile fashion and a formal timeout followed to confirm patient and the procedure to be performed. A local block was produced with infiltration of local anesthetic and an incision was made 4 cm in transverse orientation. This was deepened with the use of electrocautery. There was dense inflammatory tissue in the area of the patient's platysma layer. Ultimately the strap muscles were exposed and these were along their raphe with electrocautery. I attempted to free the strap muscles from the anterior border of the right thyroid lobe, but blunt dissection resulted in significant oozing from the muscle. This tedious process was eventually accomplished with the use of the LigaSure device. In trying to fully exposed the right thyroid lobe it was inadvertently fractured. Still, the polar vessels remained intact and the parenchyma appeared well perfused. Ultimately I was able to separate the muscle fully from the lateral border of the right thyroid lobe and expose the medial border of the carotid sheath. With this exposure, the right thyroid lobe was elevated anteriorly and medially. Initially, there was some fullness along the inferior pole of the right thyroid lobe which I dissected and felt may represent a fatty parathyroid adenoma. A specimen was submitted for frozen section, but returned only consistent with fibrofatty tissue and lymphatics. I then palpated along the tracheoesophageal groove and felt a nodular fullness laterally that was semimobile. I believed th is represented our missing adenoma and carried out careful blunt dissection of this area to remove the overlying fibrous sleeve. Gradually this was exposed as a adenomatous parathyroid gland and I carefully worked back towards the parathyroid's pole to ensure all parathyroid tissue was dissected free and the polar vessels were cauterized. Specimen was passed off the field for frozen section confirmation. This did return as consistent with hypercellular parathyroid tissue weighing 1.7 g. As we awaited this result, I elected to split the strap muscles and dissected out the anterior portion of the right internal jugular vein. Right internal jugular ex vivo blood draws were made with a 22-gauge needle and syringe at 10 and 15 minutes. PTH results were 26.6 and 22.6, respectively. Satisfied with this result, the exploratory phase of the case was terminated and I worked to obtain hemostasis in the surgical cavity with the use of selective electrocautery and application of manual pressure using Surgicel hemostatic agent. Once this was intact, I performed closure of the neck in layers. The strap muscles were run with a 3-0 Vicryl suture to approximate the raphe but a gap was left in the inferior most portion of the strap muscles. Then the platysmal layer was reapproximated with interrupted 3-0 Vicryl. Additional local anesthetic was instilled. Then the skin was closed using a running 4-0 Monocryl in a subcuticular fashion. Unfortunately, during the initial exposure, the skin was buttonholed with the electrocautery and this 5 mm skin defect was also closed with a 4-0 Monocryl stitch in a subcuticular fashion. Steri-Strips and Telfa OpSite was applied as a dressing. Patient was then awoken from general anesthetic and taken to PACU for ongoing recovery. Complications None Procedures Endocrine CF Procedures [id number]: Other Procedure See Report
[2021-09-06] MEDS: 0.9% Normal Saline 1,000 ML 125 ML IV (20:33)
[2021-09-06] MEDS: Ibuprofen 400 MG Tablet PO (20:33)
[2021-09-07] VITALS: BP 133/63; PULSE 82; RESP 16; TEMP 36.8; O2SAT 96
[2021-09-07] MEDS: Ibuprofen 400 MG Tablet PO ×2 (01:28→05:11)
[2021-09-07 02:17] VITALS: BMI 33.7
[2021-09-07 04:38] VITALS: BP 115/72; PULSE 85; RESP 16; TEMP 36.8; O2SAT 93
[2021-09-07] MEDS: 0.9% Normal Saline 1,000 ML 125 ML IV (04:41)
[2021-09-07 04:53] VITALS: BMI 33.7
[2021-09-07 06:20] LABS: Anion Gap 6 (5-15); BUN 20 mg/dL (7-18); BUN/Creat Ratio 19.6 RATIO (10-20); Calcium,Total 9.7 mg/dL (8.5-10.1); Chloride 112 mmol/L (98-107); Creatinine, Serum 1.02 mg/dL (0.70-1.30); EST Glomerular Filtration Rate 77 mL/min (>60); Est Glom Filt Rate - Afr Amer 93 mL/min (>60); Estimated Creatinine Clearance 71.77 ml/min; Glucose 110 mg/dL (74-106); Sodium Level 141 mmol/L (136-145)
--- NOTE | 2021-09-07 08:24 | PCM.DC ---
Discharge Instructions Diet Discharge Diet: No restrictions (but begin with softer foods) Activity Discharge Activity: May Not Drive (While it is painful to check blind spots) and May Shower Ice area for (Minutes): 20 Lifting Restrictions: No lifting greater than 15 pounds for 2 weeks after surgery Additional Activity Instructions:: Please remember range of motion exercises with neck Dressing / Incision Call your doctor if your incision/area has: Increased Pain/ Swelling, Increased Redness and Swelling at the incision site Call your doctor if you observe: Fever of 101 or Higher and Numbness or Tingling Remove Dressing in: 1 day (Remove outer dressing but please leave Steri-Strips intact until follow-up visit) Cleanse incision/area with: Soap & Water Follow Up Care Please Follow Up With: Carlos Reed MD When: 7 days postop Test Results: Test results from this visit will be discussed in further detail at your follow-up appointment, if applicable. Discharge Plan Admission Admit Date/Time: 09/06/21 17:20 Primary Reason for Your Visit: Hyperparathyroidism Attending Provider: Carlos Reed Primary Care Provider: Ellie Ramos Instructions Patient Instructions: Having Parathyroid Surgery Additional Instructions / Restrictions: Please take a regular strength Tums if experiencing numbness or tingling and notify my office of this development Discharge Orders/Prescriptions Prescriptions: New calcium carbonate-vitamin D3 [Oyster Shell Calcium-Vit D3] 500 mg-5 mcg (200 unit) Tablet 1 tab PO BIDCM 28 Days Qty: 56 RF: 1 Continued multivitamin Tablet 1 tab PO DAILY RF: 0 acetaminophen [Tylenol Extra Strength] 500 mg tablet 1,000 mg PO BID RF: 0 losartan 25 mg tablet 25 mg PO DAILY RF: 0 sertraline 50 mg tablet 50 mg PO DAILY RF: 0 rosuvastatin 40 mg tablet 40 mg PO DAILY RF: 0 metoprolol succinate 25 mg tablet extended release 24 hr 25 mg PO DAILY Qty: 30 RF: 11 tramadol 50 mg tablet 50 mg PO BID PRN (Reason: Pain) RF: 0 aspirin 81 MG tablet 81 mg PO DAILY@0800 RF: 0 esomeprazole magnesium 20 MG tablet,delayed release (DR/EC) 20 mg PO DAILY RF: 0 omega-3 fatty acids-fish oil 1 EACH capsule 1 ea PO DAILY RF: 0 clopidogrel 75 mg tablet 75 mg PO DAILY RF: 0 ezetimibe 10 mg tablet 10 mg PO DAILY RF: 0 cholecalciferol (vitamin D3) 25 mcg (1,000 unit) capsule 5,000 unit PO DAILY Qty: 30 RF: 1 Referrals / Follow Up: Ellie Ramos MD [Primary Care Provider] - Disposition Disposition (needs filled in before D/C Order can be placed): Home, Self Care
--- NOTE | 2021-09-07 08:35 | DS.PCM_ITS ---
Providers Date of Admission: 09/06/21 Primary Care Physician: Dr. Ellie Ramos MD Reason For Visit: parathyroidectomy Medications at Discharge Home Medications aspirin 81 mg PO DAILY@0800 05/14/17 esomeprazole magnesium 20 mg PO DAILY 05/14/17 losartan 25 mg tablet 25 mg PO DAILY 05/18/20 sertraline 50 mg tablet 50 mg PO DAILY 05/18/20 acetaminophen 500 mg tablet 1,000 mg PO BID tab 05/19/20 multivitamin 1 tab PO DAILY 05/19/20 omega-3 fatty acids-fish oil 1 ea PO DAILY 06/05/20 metoprolol succinate 25 mg tablet,extended release 24 hr 25 mg PO DAILY #30 tab 11/20/20 rosuvastatin 40 mg tablet 40 mg PO DAILY 11/20/20 cholecalciferol (vitamin D3) 25 mcg (1,000 unit) capsule 5,000 unit PO DAILY #30 cap 08/15/21 tramadol 50 mg tablet 50 mg PO BID PRN 08/22/21 clopidogrel 75 mg PO DAILY 08/27/21 ezetimibe 10 mg PO DAILY 08/27/21 calcium carbonate-vitamin D3 [Oyster Shell Calcium-Vit D3] 1 tab PO BIDCM 28 Days #56 tab 09/07/21 Hospital Course Operations - (Parathyroidectomy) Summary of Care Provided Hospital Course: Patient is a 71-year-old male who underwent reexploratory parathyroidectomy on 09/06/2021. Given his reoperative status and questionable response of his remaining parathyroid mass to this lengthy surgery, the patient was admitted for overnight observation. His incision improved to be stable and he had minimal discomfort from his surgical exploration. Postoperative day 1 his labs returned with a calcium in the range of normal, but evidence of significantly depressed parathyroid hormone activity. Therefore he was prescribed postoperative calcium supplementation and given instructions on augmenting this regimen in the event of paresthesias. He and his expressed comfort with this direction and requested discharge. With patient's proving clinical stability, this was granted and postoperative follow-up was arranged for an outpatient visit in 7 to 10 days. Physical Exam Const alert and oriented x3 General Appearance: cooperative HEENT HEENT Narrative: Excellent voice quality Neck Neck Narrative: Slight soft tissue swelling, but no evidence of increasing fluctuance to suggest underlying hematoma. Mild tenderness with palpation about incision site, otherwise patient asymptomatic. Operative dressing was intact without strikethrough. Weight / BMI Weight Weight: 241 lb 6.499 oz Body Mass Index (BMI) 33.6 ABG / Lab / Microbiology Data Result Diagrams: 09/05/21 08:32 09/07/21 05:34 Laboratory: Laboratory Results - last 24 hr 09/06/21 09:28: PTH Intact 318.8 H 09/06/21 15:15: PTH Intact 26.6 09/06/21 15:20: PTH Intact 22.6 09/07/21 05:34: Sodium 141, Potassium 4.0, Chloride 112 H, Carbon Dioxide 23.0, Anion Gap 6, BUN 20 H, Creatinine 1.02, Estim Creat Clear Calc 71.77, Est GFR (MDRD) Af Amer 93, Est GFR (MDRD) Non-Af 77, BUN/Creatinine Ratio 19.6, Glucose 110 H, Calcium 9.7 Microbiology: Microbiology 09/05/21 09:48 Interface Orders SARS-CoV-2 Antigen (Rapid) - Final D/C Instructions Discharge Diet: No restrictions (but begin with softer foods) Ice area for (Minutes): 20 Additional Activity Instructions: Please remember range of motion exercises with neck Call your doctor if your incision/area has: Increased Pain/ Swelling, Increased Redness and Swelling at the incision site Call your doctor if you observe: Fever of 101 or Higher and Numbness or Tingling Cleanse incision/area with: Soap & Water Please Follow Up With: Carlos Reed MD When: 7 days postop Meaningful Use Info Meaningful Use Diagnoses (Choose all that apply): None applicable Discharge Plan Admission Admit Date/Time: 09/06/21 17:20 Primary Reason for Your Visit: Hyperparathyroidism Attending Provider: Carlos Reed Primary Care Provider: Ellie Ramos Instructions Patient Instructions: Having Parathyroid Surgery Additional Instructions / Restrictions: Please take a regular strength Tums if experiencing numbness or tingling and no tify my office of this development Discharge Orders/Prescriptions Prescriptions: New calcium carbonate-vitamin D3 [Oyster Shell Calcium-Vit D3] 500 mg-5 mcg (200 unit) Tablet 1 tab PO BIDCM 28 Days Qty: 56 RF: 1 Continued multivitamin Tablet 1 tab PO DAILY RF: 0 acetaminophen [Tylenol Extra Strength] 500 mg tablet 1,000 mg PO BID RF: 0 losartan 25 mg tablet 25 mg PO DAILY RF: 0 sertraline 50 mg tablet 50 mg PO DAILY RF: 0 rosuvastatin 40 mg tablet 40 mg PO DAILY RF: 0 metoprolol succinate 25 mg tablet extended release 24 hr 25 mg PO DAILY Qty: 30 RF: 11 tramadol 50 mg tablet 50 mg PO BID PRN (Reason: Pain) RF: 0 aspirin 81 MG tablet 81 mg PO DAILY@0800 RF: 0 esomeprazole magnesium 20 MG tablet,delayed release (DR/EC) 20 mg PO DAILY RF: 0 omega-3 fatty acids-fish oil 1 EACH capsule 1 ea PO DAILY RF: 0 clopidogrel 75 mg tablet 75 mg PO DAILY RF: 0 ezetimibe 10 mg tablet 10 mg PO DAILY RF: 0 cholecalciferol (vitamin D3) 25 mcg (1,000 unit) capsule 5,000 unit PO DAILY Qty: 30 RF: 1 Referrals / Follow Up: Ellie Ramos MD [Primary Care Provider] - Disposition Disposition (needs filled in before D/C Order can be placed): Home, Self Care
[2021-09-07] MEDS: Calcium Carb/Vitamin D 1 TABLET Tablet PO (08:46)
[2021-09-07 09:08] VITALS: BP 120/71; PULSE 64; RESP 18; TEMP 36.2; O2SAT 98
[2021-09-07 09:48] VITALS: BP 130/70; PULSE 68; RESP 18; TEMP 37; O2SAT 98
[2021-09-07 10:48] LABS: PTHIN < 6.3 pg/mL (18.4-80.1)
[2021-09-10 10:22] LABS: Pathologist Review Reviewed
== END 2021-09-07 10:17 | disposition home or self-care (01) ==
LOC: MS3 18:48 → SDC 09-10 13:05
PROVIDERS: Admitting Provider Surgery; PCP Student in an Organized Health Care Education/Training Program; Visit Provider Surgery
PROC: (CPT 60500; principal; 2021-09-06 10:45)
DX: E21.0 Primary hyperparathyroidism (principal); I73.9 Peripheral vascular disease, unspecified; I10 Essential (primary) hypertension; I25.10 Atherosclerotic heart disease of native coronary artery without angina pectoris; E78.5 Hyperlipidemia, unspecified; I25.2 Old myocardial infarction; Z79.899 Other long term (current) drug therapy; Z79.02 Long term (current) use of antithrombotics/antiplatelets; Z79.82 Long term (current) use of aspirin; K21.9 Gastro-esophageal reflux disease without esophagitis; E55.9 Vitamin D deficiency, unspecified
CPT/HCPCS: 60500; 00320; 36415; 80048; 82306; 83970; 85027; 87426; 88305; 88331; 96360; 96361; 99218; C9803; J7030; J7120; G0378; J2405; J3490

== ENCOUNTER → 2021-09-13 | Outpatient (CLI) | payer MEDICARE, OTHER, SELFPAY ==
[2021-09-13 13:33] LABS: Calcium,Total 8.5 mg/dL (8.5-10.1)
[2021-09-13 13:42] LABS: PTHIN 19.8 pg/mL (18.4-80.1)
== END | disposition home or self-care (01) ==
PROVIDERS: PCP Student in an Organized Health Care Education/Training Program; Referring Provider Surgery; Visit Provider Surgery
DX: E89.2 Postprocedural hypoparathyroidism (principal)
CPT/HCPCS: 36415; 82310; 83970

== ENCOUNTER → 2021-10-15 | Outpatient (CLI) | payer MEDICARE, OTHER, SELFPAY ==
[2021-10-15 08:55] LABS: PTHIN 42.9 pg/mL (18.4-80.1)
== END | disposition home or self-care (01) ==
LOC: LAB 08:01
PROVIDERS: PCP Student in an Organized Health Care Education/Training Program; Referring Provider Surgery; Visit Provider Surgery
DX: E21.0 Primary hyperparathyroidism (principal); E89.2 Postprocedural hypoparathyroidism
CPT/HCPCS: 36415; 82310; 83970

== ENCOUNTER → 2023-07-11 | Outpatient (CLI) | payer MEDICARE, OTHER, SELFPAY ==
[2023-07-11 10:37] LABS: AST(SGOT) 42 U/L (15-37); Alanine Aminotransfer ALT/SGPT 44 U/L (16-61); Albumin, Serum 3.7 g/dL (3.2-5.0); Alkaline Phosphatase 66 U/L (45-117); Bilirubin, Direct 0.26 mg/dL (0.00-0.30); Cholesterol 135 mg/dL (200); Globulin 3.6 g/dL (2.2-4.2); High Density Lipoprotein 40 mg/dL; Protein, Total 7.3 g/dL (6.4-8.2); Triglycerides 337 mg/dL; Very Low Density Lipoprotein 67 mg/dL (5-40)
== END | disposition home or self-care (01) ==
LOC: LAB 08:53
PROVIDERS: Referring Provider Internal Medicine Cardiovascular Disease; Visit Provider Internal Medicine Cardiovascular Disease
DX: E78.2 Mixed hyperlipidemia (principal); E78.1 Pure hyperglyceridemia; I25.10 Atherosclerotic heart disease of native coronary artery without angina pectoris
CPT/HCPCS: 36415; 80061; 80076

== ENCOUNTER → 2023-09-11 | Outpatient (CLI) | payer MEDICARE, OTHER, SELFPAY ==
[2023-09-11 11:02] LABS: Anion Gap 8 (5-15); BUN 31 mg/dL (7-18); BUN/Creat Ratio 29.5 RATIO (10-20); Calcium,Total 8.8 mg/dL (8.5-10.1); Chloride 109 mmol/L (98-107); Creatinine, Serum 1.05 mg/dL (0.70-1.30); EST Glomerular Filtration Rate 74 mL/min (>60); Est Glom Filt Rate - Afr Amer 89 mL/min (>60); Glucose 106 mg/dL (74-106); Potassium 3.9 mmol/L (3.5-5.1); Sodium Level 140 mmol/L (136-145)
[2023-09-11 12:25] LABS: BNP,B-Type NATRIURETIC PEPTIDE 13.4 pg/mL (0-100)
== END | disposition home or self-care (01) ==
LOC: LAB 09:07
PROVIDERS: Referring Provider Nurse Practitioner Gerontology; Visit Provider Nurse Practitioner Gerontology
DX: R06.09 Other forms of dyspnea (principal)
CPT/HCPCS: 36415; 80048; 83880

== ENCOUNTER → 2023-10-24 | Outpatient (CLI) | payer MEDICARE, OTHER, SELFPAY ==
--- NOTE | 2023-10-24 11:09 | STRESSREP ---
Stress Test Report Pharmacologic myocardial perfusion stress test. 73-year-old man with a history of coronary disease previous stenting of the LAD and PCI of the left circumflex artery. Resting EKG demonstrates sinus bradycardia with a rate of 53 bpm. Resting blood pressure is 120/78 mmHg. 0.4 mg of regadenoson was infused per usual protocol followed by rapid intravenous saline flush injection. Continuous EKG monitoring was performed. The maximum heart rate was 63 bpm which was 42% of max impacted heart rate the maximum workload was 1 metabolic equivalent. At rest there were no ST or T wave changes noted to suggest ischemia and at peak infusion nonspecific ST changes were noted which did not meet the criteria for ischemia. No clinical angina is noted. The final blood pressure was 116/70 mmHg. Myocardial perfusion protocol. 14.4 mCi of technetium 99m sestamibi was injected at rest. 0.4 mg of regadenoson was infused per usual protocol. At peak infusion 45 point mCi of technetium 99m sestamibi was injected stress images were obtained stress and rest images were reconstructed and compared in the short axis vertical long and horizontal long axis. Gated images were also obtained. Perfusion SPECT analysis: Review of the stress images demonstrate normal uptake of tracer noted in all areas of the myocardium except for the mid to distal anterior wall apex and inferoapical wall with a perfusion defect. The resting images demonstrate a similar pattern. The above is suggestive of a previous anterior apical infarct. No obvious ischemia is noted. Gated SPECT analysis: The gated ejection fraction is 50%. 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 No ischemia present. Mildly reduced left ventricular ejection fraction.
== END | disposition home or self-care (01) ==
LOC: CVS 06:04 → NM 06:05 → CVS 06:09
PROVIDERS: Referring Provider Nurse Practitioner Gerontology; Visit Provider Nurse Practitioner Gerontology
DX: I11.0 Hypertensive heart disease with heart failure (principal); I50.20 Unspecified systolic (congestive) heart failure; R06.09 Other forms of dyspnea; I25.10 Atherosclerotic heart disease of native coronary artery without angina pectoris; Z95.5 Presence of coronary angioplasty implant and graft; E78.2 Mixed hyperlipidemia
CPT/HCPCS: 78452; 93017; A9500; A4216; J2785

== ENCOUNTER → 2024-03-10 | Outpatient (CLI) | payer MEDICARE, OTHER, SELFPAY ==
[2024-03-10 10:59] LABS: AST(SGOT) 32 U/L (15-37); Alanine Aminotransfer ALT/SGPT 27 U/L (16-61); Albumin, Serum 3.7 g/dL (3.2-5.0); Alkaline Phosphatase 78 U/L (45-117); Bilirubin, Direct 0.19 mg/dL (0.00-0.30); Cholesterol 160 mg/dL (200); Globulin 3.5 g/dL (2.2-4.2); High Density Lipoprotein 30 mg/dL; Protein, Total 7.2 g/dL (6.4-8.2); Triglycerides 588 mg/dL
== END | disposition home or self-care (01) ==
LOC: PSN 08:51
PROVIDERS: Referring Provider Nurse Practitioner Family; Visit Provider Nurse Practitioner Family
DX: E78.2 Mixed hyperlipidemia (principal); R00.1 Bradycardia, unspecified
CPT/HCPCS: 36415; 80061; 80076; 93225; 93226

== ENCOUNTER → 2024-12-16 | Outpatient (CLI) | payer MEDICARE, OTHER, SELFPAY ==
[2024-12-16 12:44] LABS: Cholesterol 155 mg/dL (<=200); Low Density Lipoprotein Calc. 74 mg/dL; Triglycerides 183 mg/dL; Very Low Density Lipoprotein 37 mg/dL (5-40); cholesterol:hdl ratio screen 3.51
[2024-12-16 12:51] LABS: AST(SGOT) 36 U/L (<=37); Alanine Aminotransfer ALT/SGPT 27 U/L (<=46); Albumin, Serum 4.6 g/dL (3.4-4.8); Alkaline Phosphatase 74 U/L (40-129); Bilirubin, Direct 0.22 mg/dL (0.00-0.30); Globulin 2.8 g/dL (2.2-4.2)
== END | disposition home or self-care (01) ==
PROVIDERS: Referring Provider Physician Assistant Medical; Visit Provider Physician Assistant Medical
DX: E78.2 Mixed hyperlipidemia (principal); I50.20 Unspecified systolic (congestive) heart failure
CPT/HCPCS: 36415; 80061; 80076